=== PATIENT | female | born 1990 | race American Indian/Alaskan Native ===

== ENCOUNTER 2016-12-07 06:26 | Emergency (ER) | payer MEDICAID ==
[2016-12-07 06:42] VITALS: RESP 20
[2016-12-07 07:52] LABS: RBC URINE 53 /hpf (0-3); URINE BACTERIA OCC (<OCC); URINE BILIRUBIN NEGATIVE (NEGATIVE); URINE BLOOD 3+ (NEGATIVE); URINE COLOR Yellow (YELLOW); URINE GLUCOSE (UA) NORMAL (Normal); URINE KETONE 1+ mg/dL (NEGATIVE); URINE LEUKOCYTE ESTERASE 3+ Leu/uL (Negative); URINE PROTEIN 2+ mg/dL (NEGATIVE); URINE UROBILINOGEN NORMAL mg/dL (0.2-1.0); WBC URINE 785 /hpf (0-5)
--- NOTE | 2016-12-07 08:05 | C.PDOC ---
History Of Present Illness 26 y/o female presents to ED with c/o dysuria, urinary frequency since yesterday. Patient reports she developed lower abdominal pressure-like pain last night, radiating to the back. Denies fever, nausea, vomiting. Notes she took Tylenol last night w/o relief. Also reports history of UTI's. Time Seen by Provider: 12/07/16 07:17 Chief Complaint (Nursing): Abdominal Pain History Per: Patient History/Exam Limitations: no limitations Onset/Duration Of Symptoms: Days Current Symptoms Are (Timing): Still Present Quality Of Discomfort: Pressure Associated Symptoms: Urinary Symptoms. denies: Fever, Chills, Nausea, Vomiting , Diarrhea Recent travel outside of the [place]: No Abnormal Vaginal Bleeding: No Past Medical History Reviewed: Historical Data, Nursing Documentation, Vital Signs Vital Signs: Last Vital Signs Temp 98.5 F 12/07/16 08:19 Pulse 84 12/07/16 08:19 Resp 20 12/07/16 08:19 BP 138/72 12/07/16 08:19 Pulse Ox 100 12/07/16 08:19 - Medical History PMH: Asthma, Bronchitis, HTN Family History: States: Unknown Family Hx - Social History Hx Alcohol Use: Yes Hx Substance Use: No - Immunization History Hx Tetanus Toxoid Vaccination: No Hx Influenza Vaccination: No Hx Pneumococcal Vaccination: No Review Of Systems Except As Marked, All Systems Reviewed And Found Negative. Constitutional: Negative for: Fever, Chills Cardiovascular: Negative for: Chest Pain Respiratory: Negative for: Cough, Shortness of Breath Gastrointestinal: Positive for: Abdominal Pain. Negative for: Nausea, Vomiting , Diarrhea Genitourinary: Positive for: Dysuria, Frequency Skin: Negative for: Rash Physical Exam - Physical Exam Appears: Non-toxic, Other (uncomfortable) Skin: Normal Color, Warm, Dry Head: Atraumatic, Normacephalic Oral Mucosa: Moist Chest: Symmetrical Cardiovascular: Rhythm Regular, No Murmur Respiratory: Normal Breath Sounds, No Rales, No Rhonchi, No Wheezing Gastrointestinal/Abdominal: Soft, Tenderness (suprapubic), No Guarding, No Rebound Back: Normal Inspection, No CVA Tenderness Extremity: Normal ROM, Capillary Refill (< 2 sec.) ED Course And Treatment O2 Sat by Pulse Oximetry: 99 (RA) Pulse Ox Interpretation: Normal Medical Decision Making Medical Decision Making: Plan: * Tylenol, Toradol, Pyridium * UA, urine culture * Reassess Progress: UA negative for , shows nitrates, LE and WBCs. Will treat with pyridium. Patient remained without fever and in no distress. Rx given and recommend follow up with PCP or clinic. Disposition Counseled Patient/Family Regarding: Diagnosis, Need For Followup, Rx Given - [facility]position [facility] Disposition: HOME/ ROUTINE Disposition Time: 08:04 Condition: STABLE Additional Instructions: You have a urinary tract infection for which you must take antibiotic Macrobid twice daily Drink lots of fluids and rest Follow up with your doctor or clinic for further care Prescriptions: Nitrofurantoin Macrocrystals [Macrobid] 1 cap PO BID #14 cap Phenazopyridine [Pyridium] 200 mg PO Q8 #6 tab Instructions: Urinary Tract Infection in Women (ED) Forms: [employer] ([employer]) - POA Present On Arrival: None - Clinical Impression Clinical Impression: UTI (urinary tract infection) - PA / TRAVELING BUYER / Resident Statement MD/DO has reviewed & agrees with the documentation as recorded. - Scribe Statement The provider has reviewed the documentation as recorded by the Scribe SM All medical record entries made by the Scribe were at my direction and personally dictated by me. I have reviewed the chart and agree that the record accurately reflects my personal performance of the history, physical exam, medical decision making, and the department course for this patient. I have also personally directed, reviewed, and agree with the discharge instructions and disposition.
[2016-12-07 08:20] VITALS: BP 138/72; PULSE 84; TEMP 98.5
[2016-12-07 08:47] VITALS: O2SAT 99
== END 2016-12-07 08:19 | disposition home or self-care (01) ==
LOC: EDBD 06:26 → C.ER 06:26
DX: N39.0 Urinary tract infection, site not specified (principal)
CPT/HCPCS: 81001; 84703; 87086; 87181; 96372; 99285; J1885